=== PATIENT | female | born 1945 | race Caucasian/White ===

== ENCOUNTER 2017-02-14 13:00 | Emergency (ER) | payer MEDICAID, OTHER ==
[~2017-02-14] VITALS: Ht 162.6 cm; Wt 64.0 kg
[2017-02-14] MEDS ORDERED: HYDR25TA PO (13:07)
[2017-02-14] MEDS ORDERED: LISI-660 PO (13:07)
[2017-02-14] MEDS ORDERED: ATOR40TA28 PO (13:07)
[2017-02-14] MEDS ORDERED: ACET-2744 PO (13:07)
[2017-02-14] MEDS ORDERED: ASPI81 PO (13:07)
[2017-02-14] MEDS: KETOROLAC TROMETHAMINE 60 MG/2 ML VIAL IM ONE (13:59)
[2017-02-14 14:54] VITALS: BP 131/77
== END 2017-02-14 14:58 | disposition home or self-care (01) ==
LOC: EMS 13:03
DX: M16.11 Unilateral primary osteoarthritis, right hip (principal); I10 Essential (primary) hypertension; F17.210 Nicotine dependence, cigarettes, uncomplicated; Z79.82 Long term (current) use of aspirin; Z86.73 Personal history of transient ischemic attack (TIA), and cerebral infarction without residual deficits; Z88.8 Allergy status to other drugs, medicaments and biological substances
CPT/HCPCS: 73502; 96372; 99284; J1885

== ENCOUNTER → 2019-08-10 | Outpatient (CLI) | payer MEDICARE, MEDICAID ==
[~2019-08-10] MED LIST: ACET-2744 PO; ASPI81 PO; ATOR40TA28 PO; HYDR25TA PO; LISI-660 PO
[2019-08-10 12:14] LABS: ANION GAP 4 mmol/L (8-16); CALCIUM, TOTAL 9.7 mg/dL (8.8-10.5); CARBON DIOXIDE 32 mmol/L (22-29); CHLORIDE 104 mmol/L (98-107); CREATININE 0.87 mg/dL (0.60-1.30); GLUCOSE,RANDOM 99 mg/dL (70-110); POTASSIUM 4.6 mmol/L (3.5-5.1); SODIUM SERUM 140 mmol/L (136-145); UREA NITROGEN, BLOOD 21 mg/dL (7-18)
[2019-08-10 12:18] LABS: GLOMERULAR FILTR. RATE CALC > 60 mL/min (>60)
== END | disposition home or self-care (01) ==
LOC: LABMN 11:19
PROVIDERS: ATTEND Internal Medicine Interventional Cardiology
DX: I10 Essential (primary) hypertension (principal); E78.5 Hyperlipidemia, unspecified; I25.10 Atherosclerotic heart disease of native coronary artery without angina pectoris; R55 Syncope and collapse

== ENCOUNTER → 2019-09-07 | Outpatient (CLI) | payer MEDICARE, OTHER | END | disposition home or self-care (01) | LOC: RADMN 14:14 | PROVIDERS: ATTEND Internal Medicine Interventional Cardiology | DX: M48.061 Spinal stenosis, lumbar region without neurogenic claudication (principal); M48.07 Spinal stenosis, lumbosacral region | CPT/HCPCS: 72131 ==

== ENCOUNTER 2020-12-28 09:57 | Observation (INO) | payer MEDICARE, MEDICAID ==
[2020-12-26 12:36] LABS: COVID AG,FIA SOURCE NASOPHARYNGEAL
[2020-12-26 12:42] LABS: BASOPHILS % (AUTO) 1.3 % (0.0-2.0); EOSINOPHILS % (AUTO) 3.7 % (1.0-6.0); HEMATOCRIT 42.1 % (36-46); HEMOGLOBIN 14.2 g/dL (12.0-16.0); LYMPHOCYTES # (AUTO) 2.9 K/uL (1.0-4.8); LYMPHOCYTES % (AUTO) 37.8 % (22.0-44.0); MEAN CORPUSCULAR HEMOGLOBIN 30.7 pg (26.0-34.0); MEAN CORPUSCULAR HGB CONC 33.7 G/dL (31.0-37.0); MEAN CORPUSCULAR VOLUME 91 fL (80-100); MONOCYTES # (AUTO) 0.4 K/uL (0.1-1.0); MONOCYTES % (AUTO) 5.7 % (2.0-9.0); NEUTROPHILS # (AUTO) 3.9 K/uL (1.8-7.7); NEUTROPHILS % (AUTO) 51.5 % (40.0-70.0); PLATELET COUNT (AUTO) 254 K/uL (150-450); RED BLOOD CELL COUNT(AUTO) 4.61 MIL/uL (4.00-5.20); RED CELL DISTRIBUTION WIDTH 13.4 % (11.5-14.5)
[2020-12-26 12:54] LABS: ANION GAP 10 mmol/L (8-16); CALCIUM, TOTAL 9.8 mg/dL (8.8-10.5); CARBON DIOXIDE 27 mmol/L (22-29); CHLORIDE 106 mmol/L (98-107); CREATININE 0.73 mg/dL (0.60-1.30); GLUCOSE,RANDOM 101 mg/dL (70-110); POTASSIUM 4.1 mmol/L (3.5-5.1); SODIUM SERUM 143 mmol/L (136-145); UREA NITROGEN, BLOOD 17 mg/dL (7-18)
[2020-12-26 12:55] LABS: PROTHROMBIN TIME 10.3 SEC (9.4-11.6)
[2020-12-26 12:56] LABS: GLOMERULAR FILTR. RATE CALC > 60 mL/min (>60)
[2020-12-26 13:08] LABS: ALANINE AMINOTRANSFERASE 26 U/L (12-78); ALBUMIN 3.5 g/dL (3.4-5.0); ALKALINE PHOSPHATASE 97 U/L (46-116); ASPARTATE AMINOTRANSFERASE 18 U/L (15-37); BILIRUBIN,TOTAL 0.3 mg/dL (0.1-1.0); TOTAL PROTEIN, SERUM 6.6 g/dL (6.4-8.2)
[~2020-12-28] VITALS: Ht 152.4 cm; Wt 60.8 kg
[2020-12-28] VITALS (12 sets, daily range): BP systolic 132–179; BP diastolic 62–83
[~2020-12-28 09:57] MED LIST changes: +ASPI-1450 PO; -ASPI81 PO; -ATOR40TA28 PO; -HYDR25TA PO; +HYDR25TA2 PO; -LISI-660 PO; +LISI-893 PO; +METO25 PO; +SODIUM CHLORIDE 0.9% 1,000 ML ONE
[2020-12-28] MEDS ORDERED: SODIUM CHLORIDE 0.9% 1,000 ML IV ONE ×2 (10:00→16:00)
[2020-12-28] MEDS ORDERED: IBUP-1506 PO (11:36)
[2020-12-28] MEDS ORDERED: MULT-1203 PO (11:42)
[2020-12-28] MEDS ORDERED: CHOL500013 PO (11:43)
[2020-12-28] MEDS ORDERED: CYAN100056 IM (11:45)
[2020-12-28] MEDS ORDERED: INUL2TAB5 PO (11:46)
[2020-12-28] MEDS ORDERED: ZINC220C14 PO (11:47)
[2020-12-28] MEDS ORDERED: ASCO500 PO (11:48)
[2020-12-28] MEDS ORDERED: HEPARIN SODIUM 1000 UNITS/NS 1,000 ML ONE (13:46)
[2020-12-28] MEDS ORDERED: LIDOCAINE/PF 1% 30 ML VIAL ONE (13:46)
[2020-12-28] MEDS ORDERED: SODIUM BICARBONATE 50 MEQ/50 ML VIAL ONE ×2 (13:46→13:48)
[2020-12-28] MEDS ORDERED: IOHEXOL 300 MG/ML 100 ML VIAL ONE ×2 (13:46→15:09)
[2020-12-28] MEDS ORDERED: IOHEXOL 300 MG/ML 50 ML VIAL ONE (13:46)
[2020-12-28] MEDS ORDERED: VERAPAMIL HCL 2.5 MG/ML 2 ML VIAL ONE (14:31)
[2020-12-28] MEDS ORDERED: NITROGLYCERIN 50 MG/D5% WATER 0 ML ONE (14:31)
[2020-12-28] MEDS ORDERED: MIDAZOLAM HCL 2 MG/2 ML VIAL ONE (14:35)
[2020-12-28] MEDS ORDERED: FentaNYL CITRATE PF 100 MCG/2 ML VIAL ONE (14:35)
[2020-12-28] MEDS ORDERED: FentaNYL CITRATE PF 100 MCG/2 ML VIAL IVP ONE (14:45)
[2020-12-28] MEDS ORDERED: HEPARIN SODIUM 1000 UNITS/NS 1,000 ML IARTER ONE (14:45)
[2020-12-28] MEDS ORDERED: MIDAZOLAM HCL 2 MG/2 ML VIAL IVP ONE (14:45)
[2020-12-28] MEDS ORDERED: LIDOCAINE 1% 30 ML/SOD BICARB 8.4% 4 ML SQ ONE (14:45)
[2020-12-28] MEDS ORDERED: IOHEXOL 300 MG/ML 50 ML VIAL IARTER ONE (14:45)
[2020-12-28] MEDS ORDERED: IOHEXOL 300 MG/ML 100 ML VIAL IARTER ONE (14:45)
[2020-12-28] MEDS ORDERED: SODIUM CHLORIDE 0.9% 500 ML IV ONE (14:45)
[2020-12-28] MEDS ORDERED: HEPARIN SODIUM,PORCINE 5,000 UNITS/ML VIAL IVP ONE ×2 (15:00→15:15)
[2020-12-28] MEDS ORDERED: NITROGLYCERIN 400 MCG/SUBLINGUAL SPRAY 4.9 GM BOTTLE SL ONE ×2 (15:00→15:15)
[2020-12-28] MEDS ORDERED: HEPARIN SODIUM 1000 UNITS/NS 500 ML ONE (15:01)
[2020-12-28] MEDS ORDERED: ASPIRIN 325 MG TABLET ONE (15:24)
[2020-12-28] MEDS ORDERED: TICAGRELOR 90 MG TABLET ONE (15:25)
[2020-12-28] MEDS ORDERED: TICAGRELOR 90 MG TABLET PO ONE (15:30)
[2020-12-28] MEDS ORDERED: ASPIRIN 325 MG TABLET PO ONE (15:30)
[2020-12-28] MEDS ORDERED: ACETAMINOPHEN 325 MG TABLET PO PRN (16:00)
[2020-12-28] MEDS: NITROGLYCERIN 400 MCG/SUBLINGUAL SPRAY 4.9 GM BOTTLE SL PRN ×2 (17:12→17:21)
[2020-12-28] MEDS: LISINOPRIL 10 MG TABLET PO SCH (20:39)
[2020-12-28] MEDS: METOPROLOL TARTRATE 25 MG TABLET PO SCH (20:39)
[2020-12-28] MEDS: TICAGRELOR 90 MG TABLET PO SCH (20:39)
[2020-12-28] MEDS ORDERED: ATORVASTATIN CALCIUM 20 MG TABLET PO SCH (21:00)
[2020-12-29] VITALS (7 sets, daily range): BP systolic 116–151; BP diastolic 59–72
[2020-12-29] MEDS ORDERED: ZINC SULFATE 220 MG CAPSULE PO SCH (09:00)
[2020-12-29] MEDS ORDERED: HYDROCHLOROTHIAZIDE 25 MG TABLET PO SCH (09:00)
[2020-12-29] MEDS ORDERED: CHOLECALCIFEROL (VIT D3) 5,000 [125 MCG] UNITS CAPSULE PO SCH (09:00)
[2020-12-29] MEDS ORDERED: ASPIRIN 81 MG CHEWABLE TABLET PO SCH (09:00)
[2020-12-29] MEDS: TICAGRELOR 90 MG TABLET PO SCH ×2 (09:07→18:02)
[2020-12-29] MEDS: METOPROLOL TARTRATE 25 MG TABLET PO SCH (09:07)
[2020-12-29] MEDS: LISINOPRIL 10 MG TABLET PO SCH (10:31)
[2020-12-29] MEDS ORDERED: NITR4.9S5 SL (15:58)
[2020-12-29] MEDS ORDERED: ATOR40TA28 PO (15:58)
[2020-12-29] MEDS ORDERED: TICA90TA PO (15:58)
== END 2020-12-29 19:10 | disposition home or self-care (01) ==
LOC: CATHLAB 09:57 → INTOOBSV 09:58 → 5S 09:58
PROVIDERS: ADMIT Internal Medicine Interventional Cardiology; ATTEND Internal Medicine Interventional Cardiology
DX: I24.9 Acute ischemic heart disease, unspecified (principal); Z20.822 Contact with and (suspected) exposure to COVID-19; Z86.73 Personal history of transient ischemic attack (TIA), and cerebral infarction without residual deficits; Z79.82 Long term (current) use of aspirin; I10 Essential (primary) hypertension; Z79.01 Long term (current) use of anticoagulants
CPT/HCPCS: 36415; 80053; 85025; 85610; 85730; 87426; 92920; 92928; 93005; 93458; 96360; 96361 ×2; 99219 ×2; C1760; C1874; C1887; C9803; J1644; J2250; J3010; J3490 ×2; J7030; Q9967 ×2; Z7610

== ENCOUNTER 2021-07-19 08:27 | Emergency (ER) | payer MEDICARE, MEDICAID ==
[~2021-07-19] VITALS: Ht 154.9 cm; Wt 59.1 kg
[~2021-07-19 08:27] MED LIST changes: +ASCO500 PO; +ATOR40TA28 PO; +CHOL500013 PO; +CYAN100056 IM; +IBUP-1506 PO; +INUL2TAB5 PO; +MULT-1203 PO; +NITR4.9S5 SL; -SODIUM CHLORIDE 0.9% 1,000 ML ONE; +TICA90TA PO; +ZINC220C14 PO
[2021-07-19 09:33] LABS: EOSINOPHILS % (AUTO) 2.8 % (1.0-6.0); HEMATOCRIT 43.8 % (36-46); HEMOGLOBIN 14.5 g/dL (12.0-16.0); LYMPHOCYTES # (AUTO) 2.2 K/uL (1.0-4.8); LYMPHOCYTES % (AUTO) 29.8 % (22.0-44.0); MEAN CORPUSCULAR HEMOGLOBIN 30.4 pg (26.0-34.0); MEAN CORPUSCULAR HGB CONC 33.2 G/dL (31.0-37.0); MEAN CORPUSCULAR VOLUME 92 fL (80-100); MONOCYTES # (AUTO) 0.4 K/uL (0.1-1.0); NEUTROPHILS # (AUTO) 4.6 K/uL (1.8-7.7); NEUTROPHILS % (AUTO) 61.4 % (40.0-70.0); PLATELET COUNT (AUTO) 269 K/uL (150-450); RED BLOOD CELL COUNT(AUTO) 4.78 MIL/uL (4.00-5.20); RED CELL DISTRIBUTION WIDTH 14.2 % (11.5-14.5)
[2021-07-19 09:41] LABS: ANION GAP 7 mmol/L (8-16); CALCIUM, TOTAL 9.9 mg/dL (8.8-10.5); CARBON DIOXIDE 30 mmol/L (22-29); CHLORIDE 104 mmol/L (98-107); CREATININE 0.78 mg/dL (0.60-1.30); GLOMERULAR FILTR. RATE CALC > 60 mL/min (>60); GLUCOSE,RANDOM 103 mg/dL (70-110); POTASSIUM 3.7 mmol/L (3.5-5.1); SODIUM SERUM 141 mmol/L (136-145); UREA NITROGEN, BLOOD 17 mg/dL (7-18)
[2021-07-19] MEDS ORDERED: MORPHINE SULFATE 4 MG/ML SYRINGE IVP ONE ×2 (09:45→15:15)
[2021-07-19] MEDS ORDERED: ONDANSETRON HCL 4 MG/2 ML VIAL IVP ONE (09:45)
[2021-07-19 09:46] LABS: B-TYPE NATRIURETIC PEPTIDE 92 pg/mL (0-100)
[2021-07-19 09:47] LABS: ALANINE AMINOTRANSFERASE 26 U/L (12-78); ALBUMIN 3.8 g/dL (3.4-5.0); ALKALINE PHOSPHATASE 85 U/L (46-116); ASPARTATE AMINOTRANSFERASE 19 U/L (15-37); BILIRUBIN,TOTAL 0.4 mg/dL (0.1-1.0); TOTAL PROTEIN, SERUM 7.2 g/dL (6.4-8.2)
[2021-07-19] MEDS ORDERED: IOHEXOL 350 MG/ML 100 ML VIAL ONE (10:22)
[2021-07-19] MEDS ORDERED: SODIUM CHLORIDE 0.9% 100 ML ONE (10:22)
[2021-07-19 15:30] VITALS: BP 136/67
== END 2021-07-19 16:10 | disposition home or self-care (01) ==
LOC: EMS 08:32
DX: S43.491A Other sprain of right shoulder joint, initial encounter (principal); F17.210 Nicotine dependence, cigarettes, uncomplicated; R07.89 Other chest pain; X58.XXXA Exposure to other specified factors, initial encounter; Y93.89 Activity, other specified; Y92.89 Other specified places as the place of occurrence of the external cause; Y99.8 Other external cause status
CPT/HCPCS: 36415; 71045; 71260; 73201; 80053; 83880; 84484; 85025; 93005; 96374; 96375; 96376; 99285; J2270; J2405; J7050; Q9967; 29240

== ENCOUNTER 2024-01-16 10:20 | Emergency (ER) | payer MEDICARE, MEDICAID ==
[~2024-01-16] VITALS: Ht 154.9 cm; Wt 58.6 kg
[~2024-01-16 10:20] MED LIST changes: -ASPI-1450 PO; +ASPI81 PO; -ATOR40TA28 PO; +ATOR40TA71 PO; +CLOP75TA60 PO; +CYAN-11 IM; -CYAN100056 IM; -HYDR25TA2 PO; -TICA90TA PO; -ZINC220C14 PO; +ZINC50CA3 PO
[2024-01-16 10:25] VITALS: TEMP 97.6
[2024-01-16] MEDS: CARBAMIDE PEROXIDE 6.5% 15 ML OTIC SOLUTION AD ONE (11:59)
[2024-01-16] MEDS: AMOXICILLIN TRIHYDRATE 250 MG CAPSULE PO ONE (13:29)
[2024-01-16 13:32] VITALS: BP 126/84; PULSE 74; RESP 16
== END 2024-01-16 16:08 | disposition home or self-care (01) ==
LOC: EMS 11:11
DX: H66.91 Otitis media, unspecified, right ear (principal); I10 Essential (primary) hypertension; F17.210 Nicotine dependence, cigarettes, uncomplicated; Z98.890 Other specified postprocedural states
CPT/HCPCS: 99283